=== PATIENT | female | born 1965 | race Caucasian/White ===

== ENCOUNTER → 2021-02-05 | Outpatient (CLI) | payer OTHER ==
[~2021-02-05] MED LIST: ASPIRIN EC81 MG PO; CARVEDILOL12.5 MG PO; HYDROCHLOROTHIA25 MG PO; PEPCID20 MG PO; SIMVASTATIN20 MG PO
[2021-02-07 07:11] LABS: RHEUMATOID ARTHRITIS FACTOR <10.0 IU/mL (0.0-13.9); VITAMIN D, 25-HYDROXY 23.4 ng/mL (30.0-100.0)
== END ==
LOC: LAB 09:34
PROVIDERS: Nurse Practitioner Family
DX: M79.641 Pain in right hand (principal); M79.642 Pain in left hand; M25.50 Pain in unspecified joint; R53.83 Other fatigue; M79.10 Myalgia, unspecified site; D89.9 Disorder involving the immune mechanism, unspecified; R76.8 Other specified abnormal immunological findings in serum; M18.9 Osteoarthritis of first carpometacarpal joint, unspecified; M19.042 Primary osteoarthritis, left hand; M19.041 Primary osteoarthritis, right hand; M46.1 Sacroiliitis, not elsewhere classified
CPT/HCPCS: 36415; 72202; 73130; 82550; 82728; 83520; 85652; 86140; 86200; 86431

== ENCOUNTER → 2021-11-09 | Outpatient (CLI) | payer OTHER ==
[~2021-11-09] MED LIST changes: +ALCLOMETASONE D TOP; +ASPIR-TRIN325 MG PO; +HYDROCODON-ACE1 EAC6 PO; +NASAL SPRAY30 ML; +ROBAXIN 750 MG750 MG PO; +TYLENOL ARTHRITIS PO; +ULTRAM50 MG PO; +VITAMIN D21250 MCG PO; +ZOCOR40 MG PO
== END ==
LOC: LAB 11:09
PROVIDERS: Orthopaedic Surgery
DX: Z01.812 Encounter for preprocedural laboratory examination (principal)
CPT/HCPCS: 36415; 80048; 86850; 86900; 86901

== ENCOUNTER → 2021-11-10 | Day surgery (SDC) | payer OTHER ==
[~2021-11-10] VITALS: Ht 167.6 cm; Wt 87.1 kg
== END | disposition home or self-care (01) ==
LOC: OR 05:27 → EDSTATUS 11:00
DX: M17.11 Unilateral primary osteoarthritis, right knee (principal); I10 Essential (primary) hypertension; E78.5 Hyperlipidemia, unspecified; Z88.8 Allergy status to other drugs, medicaments and biological substances; Z79.82 Long term (current) use of aspirin; Z20.822 Contact with and (suspected) exposure to COVID-19
CPT/HCPCS: 73560; 76000; 97162; 97166; 97530; C1713; C1776; J0171; J0690; J1100; J2001; J2250; J2704; J2795; J3010; J7030; J7120; U0002

== ENCOUNTER → 2022-02-23 | Outpatient (CLI) | payer OTHER | LOC: RAD 15:12 | DX: M47.816 Spondylosis without myelopathy or radiculopathy, lumbar region (principal); M46.1 Sacroiliitis, not elsewhere classified | CPT/HCPCS: 72100; 72202 ==